=== PATIENT | female | born 2000 | race Caucasian/White ===

== ENCOUNTER 2018-10-12 05:47 | Outpatient (CLI) | payer OTHER, BC ==
[~2018-10-12] VITALS: Ht 170.2 cm; Wt 63.5 kg
[2018-10-12] MEDS ORDERED: ESCI20TA PO (15:15)
== END 2018-10-12 15:24 | disposition home or self-care (01) ==
LOC: PREOP 05:47
PROVIDERS: ATTEND Obstetrics & Gynecology
DX: Z01.818 Encounter for other preprocedural examination (principal)

== ENCOUNTER 2018-10-15 06:50 | Day surgery (SDC) | payer BC, OTHER ==
[~2018-10-15] VITALS: Ht 170.2 cm; Wt 62.1 kg
[~2018-10-15 06:50] MED LIST: ESCI20TA PO
[2018-10-15 07:10] VITALS: BP 128/86
[2018-10-15] MEDS ORDERED: LACTATED RINGERS 1,000 ML IV PRN (07:22)
[2018-10-15 07:23] LABS: BASOPHILS % (AUTO) 0 % (0-10); EOSINOPHILS # (AUTO) 0.1 10^3/uL (0.0-0.3); EOSINOPHILS % (AUTO) 2 % (0-10); HEMATOCRIT 39 % (35-52); HEMOGLOBIN 12.7 G/DL (11.5-16.0); LYMPHOCYTES # (AUTO) 3.3 X 10^3 (1.0-4.0); LYMPHOCYTES % (AUTO) 48 % (12-44); MEAN CORPUSCULAR HEMOGLOBIN 31 PG (25-34); MEAN CORPUSCULAR HGB CONC 32 G/DL (32-36); MEAN CORPUSCULAR VOLUME 95 FL (80-99); MEAN PLATELET VOLUME 10.5 FL (7.4-10.4); MONOCYTES # (AUTO) 0.6 X 10^3 (0.0-1.0); MONOCYTES % (AUTO) 8 % (0-12); NEUTROPHILS % (AUTO) 43 % (42-75); PLATELET COUNT 259 10^3/uL (130-400); RED BLOOD COUNT 4.11 10^6/uL (4.35-5.85)
[2018-10-15] MEDS ORDERED: DOXYCYCLINE INJECTION 100 MG in NS (IVPB) 100 ML IV ONE ×4 (07:30)
--- OUTSIDE RECORDS SUMMARY | 2018-10-15 07:32 | XMS REPORT ---
Author Author KEANU HURT Organization [facility] Address [address] [place] [address] Care Team Providers Care Bitumastic Applier Name Role Phone KEANU HURT Unavailable PROBLEMS Unknown Problems ALLERGIES No Information ENCOUNTERS Encounter Location Date Diagnosis [facility] [id number] [place] [phone] Aug, 2018 Cyst of Bartholin's gland N75.0 and Abscess L02.91 [facility] [id number] [place] [phone] Aug, [facility] [id number] [place] [phone] Jul, [facility] [id number] [place] [phone] May, STD exposure Z20.2 IMMUNIZATIONS No Known Immunizations SOCIAL HISTORY Never Assessed REASON FOR VISIT abscess on left side of vaginal opening. been there for a year. audrey cooleyt will be scheduled scheduling et pt will be notified via telephone. pt verbalized understanding PLAN OF CARE VITAL SIGNS Height 67 in 2018-08-11 Weight 135.6 lbs 2018-08-11 Temperature 98.0 degrees Fahrenheit 2018-08-11 Heart Rate 86 bpm 2018-08-11 Respiratory Rate 20 2018-08-11 BMI 21.24 kg/m2 2018-08-11 Blood pressure systolic 118 mmHg 2018-08-11 Blood pressure diastolic 70 mmHg 2018-08-11 MEDICATIONS Medication Instructions Dosage Frequency Start Date End Date Duration Status Lexapro 5 MG Orally Once a day 2 tablets 24h 30 day(s) Active RESULTS No Results PROCEDURES No Known procedures INSTRUCTIONS MEDICATIONS ADMINISTERED No Known Medications MEDICAL (GENERAL) HISTORY Type Description Date 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
--- OUTSIDE RECORDS SUMMARY | 2018-10-15 07:32 | XMS REPORT ---
Author Author CHRISTIAN SOUSA Organization [facility] Address [address] [place] [address] Care Team Providers Care Etl Developer Name Role Phone CHRISTIAN SOUSA Unavailable PROBLEMS Unknown Problems ALLERGIES No Known Allergies ENCOUNTERS Encounter Location Date Diagnosis [facility] [id number] [place] [phone] Aug, Cyst of Bartholin's gland N75.0 and Abscess L02.91 [facility] [id number] [place] [phone] Aug, [facility] [id number] [place] [phone] Jul, [facility] [id number] [place] [phone] May, STD exposure Z20.2 IMMUNIZATIONS No Known Immunizations SOCIAL HISTORY Never Assessed REASON FOR VISIT vaginal abcess. She has had it a little over a year. ADITI Kaplan PLAN OF CARE Activity Details Follow Up prn Reason: Future/Pending Procedure I & D OF LABIAL ABSCESS VITAL SIGNS Height 67 in 2018-08-13 Weight 137.1 lbs 2018-08-13 Temperature 99.0 degrees Fahrenheit 2018-08-13 Heart Rate 92 bpm 2018-08-13 Respiratory Rate 18 2018-08-13 BMI 21.47 kg/m2 2018-08-13 Blood pressure systolic 128 mmHg 2018-08-13 Blood pressure diastolic 72 mmHg 2018-08-13 MEDICATIONS Medication Instructions Dosage Frequency Start Date End Date Duration Status Tangier 5-325 MG Orally 3 times a day 1 tablet as needed 8h 13 Aug, 2018 Aug, 5 days Active Cephalexin 500 mg Orally every 12 hrs 1 capsule 12h Aug, Aug, 7 days Active Motrin IB 800 Orally 3 times a day 1 tablet as needed 8h Aug, Aug, 10 days Active Lexapro 5 MG Orally Once a day 2 tablets 24h 30 day(s) Active Vaishali Active RESULTS No Results PROCEDURES Procedure Date Ordered Result Body Site I & D OF VULVA/PERINEUM Aug 13, 2018 CULTURE, BACTERIA, OTHER Aug 13, 2018 INSTRUCTIONS MEDICATIONS ADMINISTERED No Known Medications MEDICAL (GENERAL) HISTORY Type Description Date 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
--- OUTSIDE RECORDS SUMMARY | 2018-10-15 07:32 | XMS REPORT ---
Author Author HUONG DOSHI Organization [facility] Address [address] [place] [address] Care Team Providers Care Pulling Unit Floorhand Name Role Phone HUONG DOSHI Unavailable PROBLEMS Unknown Problems ALLERGIES No Information ENCOUNTERS Encounter Location Date Diagnosis [facility] [id number] [place] [phone] Aug, 2018 Cyst of Bartholin's gland N75.0 and Abscess L02.91 [facility] [id number] [place] [phone] Aug, [facility] [id number] [place] [phone] Jul, [facility] [id number] [place] [phone] May, STD exposure Z20.2 IMMUNIZATIONS No Known Immunizations SOCIAL HISTORY Never Assessed REASON FOR VISIT PLAN OF CARE VITAL SIGNS MEDICATIONS No Known Medications RESULTS No Results PROCEDURES No Known procedures INSTRUCTIONS MEDICATIONS ADMINISTERED No Known Medications MEDICAL (GENERAL) HISTORY Type Description Date 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
--- OUTSIDE RECORDS SUMMARY | 2018-10-15 07:32 | XMS REPORT ---
Author Author HUONG DOSHI Organization [facility] Address [address] [place] [address] Care Team Providers Care Snow Remover Name Role Phone HUONG DOSHI Unavailable PROBLEMS Unknown Problems ALLERGIES No Known Allergies ENCOUNTERS Encounter Location Date Diagnosis [facility] [address] [phone] Aug, [facility] [address] [phone] Aug, [facility] [address] [phone] Jul, [facility] [id number] [phone] May, STD exposure Z20.2 IMMUNIZATIONS No Known Immunizations SOCIAL HISTORY Never Assessed REASON FOR VISIT STD check-The patient has been exposed to chlamydia by her boyfriend who was exposed by his ex girlfriend who had a positive chlamydia test done on 06-12-18.- -ADITI Stratton PLAN OF CARE Activity Details Follow Up pending State lab results Reason:STD exposure VITAL SIGNS Height 67 in 2018-06-25 Weight 141 lbs 2018-06-25 Temperature 98.4 degrees Fahrenheit 2018-06-25 Heart Rate 84 bpm 2018-06-25 Respiratory Rate 18 2018-06-25 BMI 22.08 kg/m2 2018-06-25 Blood pressure systolic 122 mmHg 2018-06-25 Blood pressure diastolic 74 mmHg 2018-06-25 MEDICATIONS Unknown Medications RESULTS No Results PROCEDURES Procedure Date Ordered Result Body Site No Charge June 25, 2018 Bacterial Vaginosis In House June 25, 2018 CULTURE, BACTERIA, OTHER June 25, 2018 TRICHOMONAS ASSAY W/OPTIC June 25, 2018 INSTRUCTIONS MEDICATIONS ADMINISTERED No Known Medications MEDICAL (GENERAL) HISTORY Type Description Date 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
[2018-10-15] MEDS ORDERED: LACTATED RINGERS 1,000 ML IV ONE (07:38)
[2018-10-15] MEDS ORDERED: proPOfol 200 MG/20 ML (DIPRIVAN) VIAL IV ONE ×2 (07:38→08:52)
[2018-10-15] MEDS ORDERED: LIDOCAINE PF 2% 5 ML (XYLOCAINE) VIAL ONE (07:38)
[2018-10-15] MEDS ORDERED: BUP/EPI 0.5% 1:200,000 (SENSORCAINE) 30 ML VIAL ONE (07:38)
[2018-10-15] MEDS ORDERED: ONDANSETRON 4 MG/2 ML (SDV) Z0FRAN ONE (07:38)
[2018-10-15] MEDS ORDERED: MIDAZOLAM 2 MG/2 ML (VERSED) VIAL ONE (07:39)
[2018-10-15] MEDS ORDERED: DEXAMETHASONE 10 MG/ML (DECADRON) 1 ML VIAL ONE (07:39)
[2018-10-15] MEDS ORDERED: fentaNYL INJECTION 100 MCG/2 ML AMP ONE (07:39)
[2018-10-15] MEDS ORDERED: SEVOFLURANE (ULTANE) 15 ML INHAL SOLN ONE ×4 (07:39→09:06)
[2018-10-15] MEDS ORDERED: D5 LR IV SOLUTION 1,000 ML IV SCH (08:19)
--- NOTE | 2018-10-15 08:19 | Progress Note-Pre Operative ---
Pre-Operative Progress Note H&P Reviewed The H&P was reviewed, patient examined and no changes noted. Date Seen by Provider: Oct 15, 2018 Time Seen by Provider: 08:15 Date H&P Reviewed: Oct 15, 2018 Time H&P Reviewed: 08:00 Pre-Operative Diagnosis: Left Bartholins cyst JORGE LUIS POTTER DO Oct 15, 2018 8:19 am
--- NOTE | 2018-10-15 08:21 | Discharge Inst-Women's Service ---
Discharge Inst-Women's Serv Depart Medication/Instructions New, Converted or Re-Newed RX: RX on Chart Consults/Follow Up Additional Follow Up: Yes Orders/Referrals Dr. Braswell in 3 weeks Activity Activity: Activity as Tolerated Driving Instructions: No Driving for 1 Week NO SMOKING: NO SMOKING Nothing Inside Vagina: No Douching, No [place], No Tampons Diet Discharge Diet: No Restrictions Symptoms to Report to : Bleeding Excessive, Pain Increased, Fever Over 101 Degrees F, Vaginal Bleeding Increase, Questions/Concerns For Any Problems or Questions: Contact Your Physician Skin/Wound Care Bathing Instructions: JORGE LUIS Fenton DO Oct 15, 2018 8:21 am
[2018-10-15] MEDS ORDERED: IBUP-1773 PO (08:22)
[2018-10-15] MEDS ORDERED: DOXY100T19 PO (08:22)
[2018-10-15] MEDS ORDERED: ACHD5005 PO (08:22)
[2018-10-15] MEDS ORDERED: KETOROLAC 30 MG/ML VIAL IVP ONE (08:30)
[2018-10-15] MEDS ORDERED: HYDROcodone/APAP 5 MG/325 MG (LORTAB) TAB PO PRN (08:30)
[2018-10-15] MEDS ORDERED: ONDANSETRON 4 MG/2 ML (SDV) Z0FRAN IVP PRN (08:30)
[2018-10-15] MEDS ORDERED: MEPERIDINE (DEMEROL) INJ 50 MG/ML IVP ONE (09:30)
[2018-10-15] MEDS ORDERED: morphine INJ 10 MG/ML 1ML (SYR OR VIAL) IVP ONE (09:30)
[2018-10-15] MEDS: KETOROLAC 30 MG/ML VIAL IVP NR ×5 (09:35→11:17)
[2018-10-15 10:15] VITALS: BP 113/69
[2018-10-15] MEDS: ONDANSETRON 4 MG/2 ML (SDV) Z0FRAN IVP PRN ×3 (10:25→10:42)
[2018-10-15 10:45] VITALS: BP 102/71
--- NOTE | 2018-10-15 13:47 | Anesthesia-General Post-Op ---
General Patient Condition Mental Status/LOC: Same as Preop Cardiovascular: Satisfactory Nausea/Vomiting: Absent Respiratory: Satisfactory Pain: Controlled Complications: Absent Post Op Complications Complications None Follow Up Care/Instructions Patient Instructions None needed. Anesthesia/Patient Condition Patient Condition Patient is doing well, no complaints, stable vital signs, no apparent adverse anesthesia problems. No complications reported per nursing. SRIRAM RAUSCH CRNA Oct 15, 2018 13:47
--- NOTE | 2018-10-15 14:14 | OPERATIVE REPORT ---
DATE OF SERVICE: 10/15/2018 PREOPERATIVE DIAGNOSIS: A 17-year-old female with chronic recurrent left Bartholin gland cyst. POSTOPERATIVE DIAGNOSIS: A 17-year-old female with chronic recurrent left Bartholin gland cyst. PROCEDURE PERFORMED: Left Bartholin gland marsupialization. SURGEON: Jorge Luis Potter DO. ANESTHESIA: General endotracheal. ESTIMATED BLOOD LOSS: Minimal. URINE OUTPUT: 50 mL, clear, drained at the end of procedure. FLUIDS: 800 mL lactated Ringer solution. FINDINGS: A left-sided Bartholin cyst with a normal appearing cyst wall and clear fluid noted within as well as small amount of dark blood clot noted within the cyst. SPECIMENS SENT: None. INDICATIONS: This is a 17-year-old female patient who had seen me in the office in preoperative consultation from an outside provider due to a Bartholin gland cyst that was recently lanceted in the office. She was on antibiotics at the time. I told her for best results as far as treating this, a marsupialization may be in order, this has been a recurrent issue and this has been the third episode of it being abscessed and being incised and drained. I put the patient on antibiotics for over two weeks to decrease inflammation, infection and edema in the area after which I told the patient, we could proceed with doing a marsupialization. Risks of procedure were discussed with the patient in detail and after all of her questions were answered with her significant other present. We once again reviewed the procedure in the preoperative area. Consent was obtained. The patient was taken to the operating room. DESCRIPTION OF PROCEDURE: Once in the operating room, general anesthesia was found to be adequate. She was placed in dorsal lithotomy position, prepped and draped in normal sterile fashion. I first identified the Bartholin gland on the left side. Once the cyst was identified, I used an 11-blade to guide my incision straight to the cyst itself. Once the cyst wall was encountered, a small 2 mm to 3 mm hematoma erupts from the cyst. There was minimal fluid noted. There was no purulent exudate noted. I am able then to further extend that incision and identify the cyst wall, which I grasped using a long Allis clamp in two separate areas to keep the cyst open. I then placed 3-0 Vicryl suture in an interrupted fashion incorporating the cutaneous tissue of the external vagina all the way to the cyst wall. This is in an interrupted fashion all along the borders of the cyst wall, keeping it patent and opened after which there was no active bleeding noted from my dissection plane. All instruments were removed from the patient's vagina. A rectal exam was performed to ensure no incorporation of rectal tissue. The rectal exam is normal. Lap and sponge counts were correct at the end of the procedure. Instrument counts were correct as well. Doxycycline 100 mg IV was given intraoperatively for infection prophylaxis. Job ID: [id number] DocumentID: [id number] Dictated Date: 10/15/2018 09:43:49 Watchstander Date: 10/15/2018 14:13:47 Dictated By: JORGE LUIS POTTER DO
== END 2018-10-15 11:10 | disposition home or self-care (01) ==
LOC: SDC 06:50
PROVIDERS: ATTEND Obstetrics & Gynecology
DX: N75.0 Cyst of Bartholin's gland (principal); J45.909 Unspecified asthma, uncomplicated
CPT/HCPCS: 36415; 84703; 85025; 86850; 86900; 86901; 87081; 94664